=== PATIENT | male | born 1975 | race African-American/Black ===

== ENCOUNTER 2017-05-10 16:36 | Emergency (ER) | payer SELFPAY ==
[~2017-05-10] VITALS: Ht 172.7 cm; Wt 138.0 kg
[~2017-05-10 16:36] MED LIST: GLIP10TA10 PO; LISI-604 PO
[2017-05-10 16:49] VITALS: BP 129/77
[2017-05-10] MEDS ORDERED: AMLO2.5T45 PO (16:55)
[2017-05-10] MEDS ORDERED: ATOR10TA69 PO (16:55)
== END 2017-05-10 20:36 | disposition left against medical advice (07) ==
LOC: ER 20:28
DX: R42 Dizziness and giddiness (principal); Z53.21 Procedure and treatment not carried out due to patient leaving prior to being seen by health care provider

== ENCOUNTER 2017-11-24 13:52 | Emergency (ER) | payer SELFPAY ==
[~2017-11-24] VITALS: Ht 172.7 cm; Wt 104.0 kg
[~2017-11-24 13:52] MED LIST changes: +AMLO2.5T45 PO; +ATOR10TA69 PO; -GLIP10TA10 PO
[2017-11-24] MEDS ORDERED: SODIUM CHLORIDE 0.9% 1,000 ML IV ONE ×2 (14:07→16:14)
[2017-11-24 14:29] LABS: BG BASE EXCESS 3.6 mmol/L (-2.0-2.0); BG DEOXYHEMOGLOBIN 4.9 % (0.0-5.0); BG FRACTION INSPIRED OXYGEN 21; BG HCO3 ACT 28.2 mmol/L (22.0-26.0); BG METHEMOGLOBIN 0.3 % (0.0-1.5); BG OXYGEN SATURATION 94.8 % (92.0-98.5); BG OXYHEMOGLOBIN 89.8 % (94.0-97.0); BG PCO2 42.6 mmHg (35.0-45.0); BG PH 7.439 (7.350-7.450); BG PO2 72.1 mmHg (75.0-100.0); BG SAMPLE SITE RIGHT RADIAL; BG TOTAL HEMOGLOBIN 16.6 g/dL (12.0-18.0); BG VENT MODE ROOM AIR
[2017-11-24 15:02] LABS: CHLORIDE 94 mEq/L (98-107)
[2017-11-24 15:06] LABS: BASOPHILS % 0.3 % (0.0-2.0); EOSINOPHILS % 1.1 % (0.0-5.0); HEMATOCRIT. 47.3 % (42.0-52.0); HEMOGLOBIN. 15.9 g/dL (14.0-18.0); LYMPHOCYTES % 30.1 % (20.0-50.0); MEAN CORPUSCULAR HEMOGLOBIN 30.2 pg (28.0-32.0); MEAN CORPUSCULAR VOLUME 90.1 fL (80.0-94.0); MEAN PLATELET VOLUME 10.3 fl (7.4-10.4); MONOCYTES % 8.2 % (2.0-8.0); NEUTROPHILS % 60.3 % (40.0-76.0); PLATELET 202 x1000/uL (130-400); RED BLOOD CELL COUNT 5.24 mill/uL (4.7-6.1); RED CELL DISTRIBUTION WIDTH 13.3 % (11.6-14.6)
[2017-11-24 15:11] LABS: BETA HYDROXYBUTYRATE 0.2 mMol/L (0.0-0.3)
[2017-11-24] MEDS ORDERED: INSULIN REGULAR (HUMULIN R) 300UNITS/3ML IV ONE (15:15)
[2017-11-24 17:54] VITALS: BP 128/70
== END 2017-11-24 17:55 | disposition home or self-care (01) ==
LOC: ER 14:16
DX: E11.65 Type 2 diabetes mellitus with hyperglycemia (principal); I10 Essential (primary) hypertension; F17.200 Nicotine dependence, unspecified, uncomplicated; Z79.4 Long term (current) use of insulin
CPT/HCPCS: 36415; 36600; 71045; 80053; 82010; 82375; 82805; 82962; 85025; 93005; 96361; 96374; 99285; J1815; J7030; Z7610

== ENCOUNTER 2018-03-13 21:51 | Emergency (ER) | payer SELFPAY ==
[~2018-03-13] VITALS: Ht 172.7 cm; Wt 123.0 kg
[2018-03-13] MEDS ORDERED: SODIUM CHLORIDE 0.9% 1,000 ML IV ONE (22:41)
[2018-03-13] MEDS ORDERED: NITROGLYCERIN OINT 1GM/INCH UDPKT TD ONE (22:45)
[2018-03-13] MEDS ORDERED: ASPIRIN 81MG TABLET PO ONE (22:45)
[2018-03-13] MEDS ORDERED: INSULIN REGULAR (HUMULIN R) 300UNITS/3ML IV ONE (22:45)
[2018-03-13 23:09] LABS: BASOPHILS % 0.4 % (0.0-2.0); EOSINOPHILS % 0.6 % (0.0-5.0); HEMATOCRIT. 44.3 % (42.0-52.0); LYMPHOCYTES % 42.8 % (20.0-50.0); MEAN CORPUSCULAR HEMOGLOBIN 29.9 pg (28.0-32.0); MEAN CORPUSCULAR VOLUME 88.1 fL (80.0-94.0); MEAN PLATELET VOLUME 10.2 fl (7.4-10.4); MONOCYTES % 6.5 % (2.0-8.0); NEUTROPHILS % 49.7 % (40.0-76.0); PLATELET 228 x1000/uL (130-400); RED BLOOD CELL COUNT 5.03 mill/uL (4.7-6.1); RED CELL DISTRIBUTION WIDTH 13.4 % (11.6-14.6)
[2018-03-13 23:14] LABS: CHLORIDE 99 mEq/L (98-107)
[2018-03-13 23:17] LABS: PROTHROMBIN TIME 10.8 sec (9.4-11.6)
[2018-03-13 23:18] LABS: ETHANOL BLOOD < 10 mg/dL
[2018-03-13 23:24] LABS: BETA HYDROXYBUTYRATE 0.3 mMol/L (0.0-0.3)
[2018-03-13 23:35] LABS: BG BASE EXCESS -0.1 mmol/L (-2.0-2.0); BG CARBOXYHEMOGLOBIN 4.5 % (0.5-1.5); BG DEOXYHEMOGLOBIN 3.8 % (0.0-5.0); BG FRACTION INSPIRED OXYGEN 21; BG METHEMOGLOBIN 0.2 % (0.0-1.5); BG OXYHEMOGLOBIN 91.5 % (94.0-97.0); BG PCO2 37.6 mmHg (35.0-45.0); BG PH 7.422 (7.350-7.450); BG PO2 77.3 mmHg (75.0-100.0); BG SAMPLE SITE RIGHT RADIAL; BG TOTAL HEMOGLOBIN 15.9 g/dL (12.0-18.0); BG VENT MODE ROOM AIR
[2018-03-13 23:59] LABS: CLARITY URINE CLEAR (CLEAR); COLOR URINE YELLOW (YELLOW); KETONES URINE NEGATIVE (NEGATIVE); LEUKOCYTE ESTERASE URINE NEGATIVE (NEGATIVE); NITRITE URINE NEGATIVE (NEGATIVE); OCCULT BLOOD URINE NEGATIVE (NEGATIVE); PROTEIN URINE NEGATIVE (NEGATIVE); SPECIFIC GRAVITY URINE 1.042 (1.005-1.030); UROBILINOGEN URINE 0.2 E.U./dL (0.2-1.0)
[2018-03-14] MEDS ORDERED: LEVOFLOXACIN 750MG PREMIX 150 ML IV NR
[2018-03-14 00:29] LABS: *AMPHETAMINES SCREEN URINE NEGATIVE (NEGATIVE); *BARBITURATES SCREEN URINE NEGATIVE (NEGATIVE); *COCAINE SCREEN URINE NEGATIVE (NEGATIVE)
[2018-03-14 00:30] LABS: CANNABINOID URINE SCREEN NEGATIVE (NEGATIVE); METHADONE URINE SCREEN NEGATIVE (NEGATIVE); OPIATES URINE SCREEN NEGATIVE (NEGATIVE); PHENCYCLIDINE URINE SCREEN NEGATIVE (NEGATIVE)
[2018-03-14 00:32] LABS: *BENZODIAZEPINES SCREEN URINE NEGATIVE (NEGATIVE)
[2018-03-14] MEDS ORDERED: INSULIN REGULAR (HUMULIN R) 300UNITS/3ML IV NR (00:45)
[2018-03-14 02:40] VITALS: BP 144/71
== END 2018-03-14 04:10 | disposition home or self-care (01) ==
LOC: ER 21:51
DX: E11.65 Type 2 diabetes mellitus with hyperglycemia (principal); E87.2 Acidosis; I10 Essential (primary) hypertension; F17.200 Nicotine dependence, unspecified, uncomplicated
CPT/HCPCS: 36415; 36600; 71045; 80053; 80305; 81003; 82010; 82375; 82805; 82962; 83605; 83690; 83880; 84484; 85025; 85610; 87040; 87086; 93005; 96361; 96365; 96375; 96376; 99285; G0482; J1815; J1956; J7030; Z7610

== ENCOUNTER 2018-09-02 14:32 | Emergency (ER) | payer SELFPAY ==
[~2018-09-02] VITALS: Ht 172.7 cm; Wt 105.0 kg
[2018-09-02 15:48] VITALS: BP 156/84
== END 2018-09-02 18:47 | disposition left against medical advice (07) ==
LOC: ER 14:32
DX: Z53.21 Procedure and treatment not carried out due to patient leaving prior to being seen by health care provider (principal)
CPT/HCPCS: 82962